=== PATIENT | male | born 1935 | race Caucasian/White ===

== ENCOUNTER 2017-07-29 11:38 | Emergency (ER) | payer OTHER, BC ==
[~2017-07-29] VITALS: Ht 180.3 cm; Wt 94.3 kg
[~2017-07-29 11:38] MED LIST: ASPIR 8181 M1 PO; ASPIRIN81 M1 PO; BENADRYL50 MG PO; FORTAMET500 M1 PO; LIPITOR10 MG; METFORMIN HCL500 MG PO; PRINIVIL10 MG PO; PRINIVIL5 MG PO; PROVENTIL,2.5 MG/0.5 IH; Robitussin AC,Tussi- PO; ZOCOR20 MG PO; Zithromax PO; Zocor PO; [UNRECOGNIZED DRUG - OTHER]
[2017-07-29 12:23] LABS: APPEARANCE CLEAR ((CLEAR)); BILIRUBIN NEGATIVE; BLOOD NEGATIVE; COLOR YELLOW ((YELLOW)); GLUCOSE (STRIP) NEGATIVE; KETONES 20; LEUKOCYTES NEGATIVE; NITRITE NEGATIVE; PROTEIN (STRIP) 100; SPECIFIC GRAVITY 1.028 (1.000-1.030)
[2017-07-29 12:25] LABS: HEMATOCRIT 49.7 % (38.0-50.0); HEMOGLOBIN 17.2 G/DL (12.5-16.6); MCH 31.6 PG (29.0-34.0); MCHC 34.6 G/DL (30.0-36.0); MCV 91.4 FL (86-99); PLATELET COUNT 193 K/uL (156-360); RBC DIS.WIDTH-CV 11.9 % (11.8-14.6); RBC DIS.WIDTH-SD 39.8 % (39-53); RED BLOOD COUNT 5.44 M/uL (4.00-5.50); WHITE BLOOD COUNT 9.6 K/uL (4.1-10.2)
[2017-07-29 12:26] LABS: BACTERIA NONE SEEN /HPF; EPITHELIAL CELLS RARE /HPF; MUCUS 1+ /LPF; RED BLOOD CELLS 0-5 /HPF (0-5); UCUL ADDED? NO; WHITE BLOOD CELLS 0-5 /HPF (0-5)
[2017-07-29 12:32] LABS: ALBUMIN 4.5 g/dL (3.2-4.8); CHLORIDE 104 mEq/L (99-109); POTASSIUM 4.2 mEq/L (3.7-5.4); SODIUM 137 mEq/L (136-147)
[2017-07-29 12:35] LABS: GLUCOSE 114 mg/dL (70-99)
[2017-07-29 12:36] LABS: TOTAL BILIRUBIN 1.4 mg/dL (0.0-1.0)
[2017-07-29 12:38] LABS: ALKALINE PHOSPHATASE 119 IU/L (3-129); CREATININE 0.9 mg/dL (0.6-1.3); GFR ESTIMATE (CALCULATED) > 59 mL/min/ (58.99-99999)
[2017-07-29 12:39] LABS: UREA NITROGEN (BUN) 21 mg/dL (9-23)
[2017-07-29 12:40] LABS: AST (GOT) 20 IU/L (2-34)
[2017-07-29 12:41] LABS: ALT (GPT) 17 IU/L (3-49)
[2017-07-29 12:42] LABS: LIPASE 19 U/L (1.0-51.0)
[2017-07-29] MEDS ORDERED: MELOXICAM7.5 MG PO (13:07)
[2017-07-29 17:36] VITALS: BP 125/75
== END 2017-07-29 17:37 | disposition home or self-care (01) ==
LOC: EME 11:38
PROVIDERS: Physician Assistant Medical
DX: K59.00 Constipation, unspecified (principal); E11.9 Type 2 diabetes mellitus without complications; Z79.84 Long term (current) use of oral hypoglycemic drugs; Z85.038 Personal history of other malignant neoplasm of large intestine; Z90.49 Acquired absence of other specified parts of digestive tract; E78.5 Hyperlipidemia, unspecified; I10 Essential (primary) hypertension; I25.10 Atherosclerotic heart disease of native coronary artery without angina pectoris; I25.2 Old myocardial infarction; Z85.828 Personal history of other malignant neoplasm of skin; Z95.1 Presence of aortocoronary bypass graft; Z79.82 Long term (current) use of aspirin
CPT/HCPCS: 74177; 80053; 81003; 83605; 83690; 85027; 99281; 99285; J1885; J7030